=== PATIENT | female | born 1980 | race Caucasian/White ===

== ENCOUNTER 2021-03-17 10:38 | Emergency (ER) | payer SELFPAY ==
[~2021-03-17] VITALS: Ht 154.9 cm; Wt 46.8 kg
[2021-03-17 10:41] VITALS: TEMP 98.7
[2021-03-17 11:42] LABS: BASO % 0.5 % (0.0-2.0); EOS # 0.2 (0.0-0.7); EOS % 3.2 % (0-4.0); GRAN # 4.3 (1.4-6.5); GRAN % 59.4 % (42.2-75.2); HEMATOCRIT 39.6 % (37.0-47.0); HEMOGLOBIN 13.4 g/dl (12.5-16.0); LYMPH # 2.2 (1.2-3.4); LYMPH % 30.5 % (20.0-51.0); MEAN CELL VOLUME 95 fl (80.0-100.0); MEAN CORPUSCULAR HEMOGLOBIN 32 pg (27.0-31.0); MEAN CORPUSCULAR HGB CONC 34 g/dl (33.0-37.0); MEAN PLATELET VOLUME 9.8 fl (7.4-10.4); MONO # 0.4 (0.1-0.6); PLATELET COUNT 247 K/mm3 (130-400); RED BLOOD COUNT 4.16 M/mm3 (4.10-5.30); REDCELL DISTRIBUTION WIDTH-CV 12.9 % (11.5-14.5)
[2021-03-17 11:43] LABS: COLLECTION METHOD CLEAN CATCH
[2021-03-17 11:49] LABS: PH 7 (5-8); SQUAMOUS EPITHELIAL 0-2 /hpf; URINE APPEARANCE Clear; URINE BACTERIA Rare /hpf; URINE BILIRUBIN Negative (NEGATIVE); URINE BLOOD Negative (NEGATIVE); URINE COLOR Straw; URINE GLUCOSE Negative (NEGATIVE); URINE KETONE Negative (NEGATIVE); URINE LEUKOCYTE ESTERASE 2+ (NEGATIVE); URINE NITRATE Negative (NEGATIVE); URINE PROTEIN(semi-quant) Negative (NEGATIVE); URINE UROBILINOGEN Negative (NEGATIVE)
[2021-03-17 11:50] LABS: PROTHROMBIN TIME 10.7 SECONDS (9.7-12.8)
[2021-03-17 11:53] LABS: ALANINE AMINOTRANSFERASE 17 U/L (4-34); ALBUMIN 4.4 gm/dL (3.5-5.0); ALKALINE PHOSPHATASE 49 U/L (50-136); ANION GAP 10 mmol/L (7-16); AST,SGOT 30 U/L (15-37); BILIRUBIN,TOTAL 0.2 mg/dL (0.0-1.0); BLOOD UREA NITROGEN 10 mg/dL (7-17); CALCIUM 9.3 mg/dL (8.4-10.2); CARBON DIOXIDE 24 mmol/L (22-30); CHLORIDE 105 mmol/L (98-107); CREATINE KINASE 116 U/L (30-135); CREATININE, serum 0.51 (0.52-1.25); GLUCOSE 86 mg/dL (74-106); POTASSIUM 3.9 mmol/L (3.4-5.0); SODIUM 139 mmol/L (137-145); TOTAL PROTEIN 7.6 gm/dL (6.4-8.2)
[2021-03-17 11:57] LABS: ALCOHOL(ethanol),MEDICAL < 10 mg/dL
[2021-03-17 11:59] LABS: TRICYCLIC ANTIDEPRESS URINE NEGATIVE
[2021-03-17 13:42] VITALS: BP 121/86; PULSE 99
== END 2021-03-17 13:53 | disposition home or self-care (01) ==
LOC: COL.ER 10:38 → EDBD 10:39 → COL.ER 13:53
PROVIDERS: Physician Assistant
DX: R56.9 Unspecified convulsions (principal); F17.210 Nicotine dependence, cigarettes, uncomplicated; Z88.1 Allergy status to other antibiotic agents
CPT/HCPCS: J2060; J7030; Q2009

== ENCOUNTER → 2021-09-04 | Outpatient (CLI) | payer MEDICAID | LOC: COL.RAD 13:20 | DX: R56.9 Unspecified convulsions (principal) ==